=== PATIENT | male | born 1975 | race Caucasian/White ===

== ENCOUNTER 2022-11-24 09:34 | Outpatient (REF) | payer BC, SELFPAY | END 2022-11-24 09:35 | disposition home or self-care (01) | LOC: HO.BBR 09:34 | PROVIDERS: PCP Internal Medicine; Visit Provider Internal Medicine | DX: Z13.89 Encounter for screening for other disorder (principal) ==

== ENCOUNTER 2023-06-03 10:36 | Outpatient (REF) | payer BC, SELFPAY | END 2023-06-03 10:37 | disposition home or self-care (01) | LOC: HO.BBR 10:36 | PROVIDERS: PCP Internal Medicine; Visit Provider Internal Medicine | DX: Z13.89 Encounter for screening for other disorder (principal) ==